=== PATIENT | male | born 1965 | race Caucasian/White ===

== ENCOUNTER 2017-01-27 21:10 | Emergency (ER) | payer BC ==
[~2017-01-27] VITALS: Ht 180.3 cm; Wt 79.5 kg
[2017-01-27 22:43] LABS: HEMATOCRIT 46.3 % (38.0-50.0); MCH 29.6 PG (29.0-34.0); MCHC 34.3 G/DL (30.0-36.0); MCV 86.2 FL (86-99); MEAN PLAT.VOLUME 9.8 uM^3 (9.0-12.4); PLATELET COUNT 162 K/uL (156-360); RBC DIS.WIDTH-CV 12.7 % (11.8-14.6); RBC DIS.WIDTH-SD 39.9 % (39-53); RED BLOOD COUNT 5.37 M/uL (4.00-5.50); WHITE BLOOD COUNT 6.3 K/uL (4.1-10.2)
[2017-01-27 22:52] LABS: CHLORIDE 106 mEq/L (99-109); POTASSIUM 4.5 mEq/L (3.7-5.4); SODIUM 137 mEq/L (136-147)
[2017-01-27 22:54] LABS: GLUCOSE 95 mg/dL (70-99)
[2017-01-27 22:56] LABS: ANION GAP 4 MEQ/L (2-14); TOTAL BILIRUBIN 0.5 mg/dL (0.0-1.0)
[2017-01-27 22:58] LABS: ALKALINE PHOSPHATASE 48 IU/L (3-129); GFR ESTIMATE (CALCULATED) > 59 mL/min/
[2017-01-27 22:59] LABS: UREA NITROGEN (BUN) 12 mg/dL (9-23)
[2017-01-27] MEDS ORDERED: PERCOCET 5/31 TABLET PO (23:15)
[2017-01-27] MEDS ORDERED: CLEOCIN300 MG PO (23:15)
[2017-01-27] MEDS ORDERED: MOTRIN800 MG PO (23:16)
[2017-01-28 00:05] VITALS: BP 135/84
[2017-01-28 01:50] LABS: C-REACTIVE PROTEIN 6.1 MG/L (0-10)
== END 2017-01-28 00:07 | disposition home or self-care (01) ==
LOC: EME 21:10
PROVIDERS: Physician Assistant
DX: L03.115 Cellulitis of right lower limb (principal); F17.200 Nicotine dependence, unspecified, uncomplicated
CPT/HCPCS: 73630; 80053; 85027; 86140; 99281; 99284

== ENCOUNTER 2017-04-22 17:10 | Emergency (ER) | payer BC ==
[~2017-04-22] VITALS: Ht 154.9 cm; Wt 74.5 kg
[~2017-04-22 17:10] MED LIST: CLEOCIN300 MG PO; MOTRIN800 MG PO; PERCOCET 5/31 TABLET PO
[2017-04-22] MEDS ORDERED: NORCO 5/3251 TABLET PO (19:16)
[2017-04-22] MEDS ORDERED: NAPROSYN500 MG PO (19:16)
[2017-04-22 19:47] VITALS: BP 157/89
== END 2017-04-22 19:47 | disposition home or self-care (01) ==
LOC: EME 17:10
DX: S93.402A Sprain of unspecified ligament of left ankle, initial encounter (principal); V58.4XXA Person boarding or alighting a pick-up truck or van injured in noncollision transport accident, initial encounter; I10 Essential (primary) hypertension; F17.200 Nicotine dependence, unspecified, uncomplicated
CPT/HCPCS: 73610; 99281; 99284